=== PATIENT | male | born 2000 | race African-American/Black ===

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

== ENCOUNTER 2019-01-31 01:09 | Emergency (ER) | payer MEDICAID ==
[~2019-01-31] VITALS: Ht 157.5 cm; Wt 66.7 kg
[~2019-01-31 01:09] MED LIST changes: +CIPRO500 MG PO; +FLAGYL500 MG PO; +ZOFRAN8 MG PO
[2019-01-31 01:19] VITALS: Ht 157.5 cm; Wt 66.7 kg
[2019-01-31 01:36] LABS: HEMATOCRIT 41.5 % (42.0-54.0); HEMOGLOBIN 14.2 g/dL (13.5-17.5); MCH 27.6 pg (26.0-34.0); MCHC 34.2 g/dL (31.0-37.0); MCV 80.6 fL (80.0-100.0); PLATELET COUNT 74 10x3/uL (130-400); RBC 5.15 10x6/uL (4.20-6.10); RDW 13.3 % (11.5-14.5); WBC 9.6 10x3/uL (4.8-10.8)
[2019-01-31 01:49] LABS: ALBUMIN 3.9 g/dL (3.4-5.0); ALKALINE PHOSPHATASE 101 U/L (46-116); ALT (SGPT) 30 U/L (10-68); BILIRUBIN - TOTAL 0.22 mg/dL (0.2-1.3); CALC OSMOLALITY 280 mosm/kg (275-300); CALCIUM 8.7 mg/dL (8.5-10.1); CARBON DIOXIDE 25.4 mmol/L (21.0-32.0); CHLORIDE - SERUM 106 mmol/L (98-107); CREATININE - SERUM 0.7 mg/dL (0.6-1.3); GLUCOSE 105 mg/dL (74-106); POTASSIUM - SERUM 3.6 mmol/L (3.5-5.1); PROTEIN - SERUM 6.9 g/dL (6.4-8.2); SODIUM 142 mmol/L (136-145); UREA NITROGEN 7 mg/dL (7-18); eGFR NON AFRICAN AMERICAN > 90 mL/min (90-120)
[2019-01-31 01:50] LABS: APPEARANCE CLEAR (CLEAR); BILIRUBIN NEGATIVE (NEGATIVE); COLOR YELLOW (YELLOW); GLUCOSE NEGATIVE (NEGATIVE); KETONE NEGATIVE (NEGATIVE); NITRITE NEGATIVE (NEGATIVE); PROTEIN NEGATIVE (NEGATIVE); SPECIFIC GRAVITY 1.005 (1.005-1.020); UROBILINOGEN NORMAL (NORMAL)
[2019-01-31 01:52] LABS: AMYLASE - SERUM 56 U/L (25-115); LIPASE 95 U/L (73-393); TROPONIN-I < 0.017 ng/mL (0.000-0.060)
[2019-01-31 02:03] LABS: EOSINOPHILS 4 % (0-7); LYMPHOCYTES 47 % (15-50); MONOCYTES 15 % (2-11); NEUTROPHILS 34 % (40-80); PLATELET ESTIMATE DECREASED; PLATELET MORPHOLOGY GIANT PLTS PRESENT
[2019-01-31] MEDS ORDERED: ZOFRAN ODT4 MG/UDTAB PO (03:24)
[2019-01-31 03:40] VITALS: BP 90/50
== END 2019-01-31 03:40 | disposition home or self-care (01) ==
LOC: D.ER 01:09
PROVIDERS: Family Medicine
DX: R11.2 Nausea with vomiting, unspecified (principal); F17.200 Nicotine dependence, unspecified, uncomplicated

== ENCOUNTER 2019-02-19 20:32 | Emergency (ER) | payer MEDICAID ==
[~2019-02-19] VITALS: Ht 157.5 cm; Wt 66.8 kg
[~2019-02-19 20:32] MED LIST changes: +ZOFRAN ODT4 MG/UDTAB PO
[2019-02-19 20:36] VITALS: Ht 157.5 cm; Wt 66.8 kg
[2019-02-19] MEDS ORDERED: IBUPROFEN800 MG PO (21:15)
[2019-02-19] MEDS ORDERED: KEFLEX500 MG PO (21:15)
[2019-02-19 21:20] VITALS: BP 122/60
== END 2019-02-19 21:22 | disposition home or self-care (01) ==
LOC: D.ER 20:32
DX: S41.042A Puncture wound with foreign body of left shoulder, initial encounter (principal); X58.XXXA Exposure to other specified factors, initial encounter; Y93.89 Activity, other specified; Y92.89 Other specified places as the place of occurrence of the external cause

== ENCOUNTER 2019-03-29 16:32 | Emergency (ER) | payer MEDICAID ==
[~2019-03-29] VITALS: Ht 157.5 cm; Wt 79.5 kg
[~2019-03-29 16:32] MED LIST changes: +KEFLEX500 MG PO
[2019-03-29 16:58] VITALS: Ht 157.5 cm; Wt 79.5 kg
[2019-03-29] MEDS ORDERED: ACETAMINOPHEN500 M1 PO (18:18)
[2019-03-29] MEDS ORDERED: ORAL ANALGESIC9 GM TOPICAL (18:18)
[2019-03-29] MEDS ORDERED: IBUPROFEN800 MG PO (18:18)
[2019-03-29] MEDS ORDERED: PENICILLIN V P500 MG PO (18:19)
[2019-03-29 18:45] VITALS: BP 122/64
== END 2019-03-29 18:46 | disposition home or self-care (01) ==
LOC: D.ER 16:32
DX: K00.7 Teething syndrome (principal)

== ENCOUNTER 2019-04-05 17:58 | Emergency (ER) | payer MEDICAID ==
[~2019-04-05] VITALS: Ht 157.5 cm; Wt 79.5 kg
[~2019-04-05 17:58] MED LIST changes: +ORAL ANALGESIC9 GM TOPICAL; +PENICILLIN V P500 MG PO
[2019-04-05 18:22] LABS: APPEARANCE CLEAR (CLEAR); BILIRUBIN NEGATIVE (NEGATIVE); COLOR YELLOW (YELLOW); GLUCOSE NEGATIVE (NEGATIVE); KETONE NEGATIVE (NEGATIVE); NITRITE NEGATIVE (NEGATIVE); PROTEIN TRACE mg/dL (NEGATIVE); SPECIFIC GRAVITY 1.015 (1.005-1.020); UROBILINOGEN NORMAL (NORMAL)
[2019-04-05 18:35] LABS: UDS - AMPHET NEGATIVE QUAL (NEGATIVE); UDS - BARB NEGATIVE QUAL (NEGATIVE); UDS - BENZO NEGATIVE QUAL (NEGATIVE); UDS - COCAINE NEGATIVE QUAL (NEGATIVE); UDS - OPIATE NEGATIVE QUAL (NEGATIVE); UDS - PCP NEGATIVE QUAL (NEGATIVE); UDS - THC POSITIVE QUAL (NEGATIVE)
[2019-04-05 18:49] VITALS: BP 126/80
[2019-04-06] MEDS ORDERED: AMOXICILLIN500 M1 PO (12:20)
== END 2019-04-05 18:51 | disposition home or self-care (01) ==
LOC: D.ER 17:58
PROVIDERS: Family Medicine
DX: K12.2 Cellulitis and abscess of mouth (principal)

== ENCOUNTER 2019-04-05 19:37 | Observation (INO) | payer MEDICAID ==
[~2019-04-05] VITALS: Ht 167.6 cm; Wt 69.8 kg
[2019-04-05 20:06] LABS: BASOPHILS 0.2 % (0-2); EOSINOPHILS 0.5 % (0-7); HEMATOCRIT 43.9 % (42.0-54.0); HEMOGLOBIN 14.4 g/dL (13.5-17.5); IMMATURE GRANULOCYTES 0.2 % (0-5); LYMPHOCYTES 17.8 % (15-50); MCHC 32.8 g/dL (31.0-37.0); MCV 82.2 fL (80.0-100.0); MONOCYTES 9.7 % (2-11); NEUTROPHILS 71.6 % (40-80); PLATELET COUNT 118 10x3/uL (130-400); RBC 5.34 10x6/uL (4.20-6.10); RDW 13.5 % (11.5-14.5); WBC 14.9 10x3/uL (4.8-10.8)
[2019-04-05 20:18] LABS: ALBUMIN 4.3 g/dL (3.4-5.0); ALKALINE PHOSPHATASE 107 U/L (46-116); ALT (SGPT) 48 U/L (10-68); BILIRUBIN - TOTAL 0.17 mg/dL (0.2-1.3); CALC OSMOLALITY 285 mosm/kg (275-300); CALCIUM 8.6 mg/dL (8.5-10.1); CARBON DIOXIDE 27.4 mmol/L (21.0-32.0); CHLORIDE - SERUM 106 mmol/L (98-107); CREATININE - SERUM 1.1 mg/dL (0.6-1.3); GLUCOSE 113 mg/dL (74-106); POTASSIUM - SERUM 3.8 mmol/L (3.5-5.1); PROTEIN - SERUM 7.8 g/dL (6.4-8.2); SODIUM 143 mmol/L (136-145); UREA NITROGEN 12 mg/dL (7-18); eGFR NON AFRICAN AMERICAN > 90 mL/min (90-120)
[2019-04-05 20:45] VITALS: BP 111/62
--- NOTE | 2019-04-05 20:45 | NUR ---
PT SITTING UP IN BED STATES THAT HE FEELS SOMEWHAT BETTER AND ISNT SPITTING UP MUCH. PT C/O THROAT PAIN AND UVULA IS HANGING DOWN AND GAGGING HIM. PT STILL DENIES SOB. UVULA IS STILL NOTABLY SWOLLEN. INFORMED.
--- NOTE | 2019-04-05 21:45 | NUR ---
ROCEPHIN COMPLETE AT THIS TIME.
[2019-04-05 22:30] VITALS: BP 118/57
--- NOTE | 2019-04-05 22:30 | NUR ---
PT ADMITTED TO ICU ROOM 2312 FROM ER WITH ER NURS VIA W/C PT ALERT AND ORIENTED. RESP EVEN AND NONLABORED PLACED ON CM READING SR PT HAS SWOLLEN UVULA APPEARS TO BE SIZE OF GRAPE BACK OF THROAT ON RIGHT SIDE. ON ROOM AIR SAT 100% INFORMED OF S/S TO REPORT. WITH THIS ADMIT RATIO NOW 3:1
[2019-04-05 22:45] VITALS: BP 118/58
[2019-04-05 23:00] VITALS: BP 112/52
[2019-04-05 23:01] VITALS: BP 122/62; BMI 24.6
--- NOTE | 2019-04-05 23:36 | NUR ---
COMPOUND WORKER ON UNIT INFORMED PT HAD REVEALED DURING ADMISSION HISTORY THAT HE HAD BEEN TO HOSP [facility] TODAY FOR THREAT OF SUICIDE. PT DOES DENY ANY THOUGHTS AT THIS TIME OF HARMING SELF OR OTHERS. JUST WANTS TO GO HOME.
[2019-04-06] VITALS (14 sets, daily range): BP systolic 97–127; BP diastolic 40–96; Ht 167.6 cm; Wt 69.8 kg
--- NOTE | 2019-04-06 01:00 | NUR ---
RESTING QUIETLY NO DISTRESS NOTED VSS CPOC
--- NOTE | 2019-04-06 03:00 | NUR ---
REASSESSMENT MADE UNABLE TO SEE THE SWOLLEN AREA AT THIS TIME. PT DOES STATE IT FEELS BETTER. PREVIOUSLY WAS ABLE TO SEE JUST WITH PT OPENING MOUTH
--- NOTE | 2019-04-06 07:00 | NUR ---
RECEIVED BEDSIDE REPORT AND ASSUMED CARE OF PATIENT. PATIENT ALERT AND ORIENTED, ABLE TO TALK IN FULL SENTENCES, SPO2 - 100%, CM - 74, NSR, BBS CLEAR AND EQUAL. PATIENT WITH SLIGHTLY SWOLLEN UVULA, AND RIGHT TONSIL SWOLLEN. STATES FEELING BETTER, BUT HURTS TO SWALLOW RATES 5/10. HEAD TO TOE ASSESSMENT COMPLETE. IV 18 GA TO RIGHT AC, FLUSHES EASILY WITH GOOD BLOOD RETURN NOTED.
--- NOTE | 2019-04-06 08:13 | NUR ---
PATIENT ATE 90% OF CLEAR LIQUID DIET NO DIFFICULTIES SWALLOWING. REQUESTED PHONE, PHONE PLACED IN ROOM AND PROVIDED MOM'S PHONE NUMBER.
[2019-04-06 08:57] LABS: BASOPHILS 0.1 % (0-2); EOSINOPHILS 0 % (0-7); HEMATOCRIT 49.2 % (42.0-54.0); HEMOGLOBIN 16.1 g/dL (13.5-17.5); IMMATURE GRANULOCYTES 0.3 % (0-5); MCH 27.2 pg (26.0-34.0); MCHC 32.7 g/dL (31.0-37.0); MONOCYTES 3.5 % (2-11); NEUTROPHILS 81.1 % (40-80); PLATELET COUNT 128 10x3/uL (130-400); RBC 5.93 10x6/uL (4.20-6.10); RDW 13.8 % (11.5-14.5); WBC 15.5 10x3/uL (4.8-10.8)
[2019-04-06 09:19] LABS: CALC OSMOLALITY 286 mosm/kg (275-300); CALCIUM 9.4 mg/dL (8.5-10.1); CARBON DIOXIDE 26.7 mmol/L (21.0-32.0); CHLORIDE - SERUM 106 mmol/L (98-107); CREATININE - SERUM 0.9 mg/dL (0.6-1.3); GLUCOSE 145 mg/dL (74-106); SODIUM 142 mmol/L (136-145); UREA NITROGEN 15 mg/dL (7-18); eGFR NON AFRICAN AMERICAN > 90 mL/min (90-120)
[2019-04-06 09:22] LABS: POTASSIUM - SERUM 5.6 mmol/L (3.5-5.1)
--- NOTE | 2019-04-06 09:42 | NUR ---
PATIENT STATES NOT FEELING WELL, STATES FEELS NERVOUS/ANXIOUS, AND FELT THIS WAY YESTERDAY BEFORE THE AMBULANCE CAME. VSS. DENIES ANY PAIN, NO SOB, BBS - CLEAR AND EQUAL. WILL CONTINUE TO MONITOR.
--- NOTE | 2019-04-06 10:08 | NUR ---
PATIENT STATES FEELING BETTER, HAS HAD EPISODES LIKE THIS IN THE PAST AND HAD TAKEN MEDICINE FOR THEM BUT DOESNT RECALL THE NAME OR WHAT THE CAUSE FOR FEELING THIS WAY WAS. VSS. WILL CONTINUE TO MONITOR.
--- NOTE | 2019-04-06 10:21 | NUR ---
PATIENT UP AND WALKED IN UNIT VSS.
--- NOTE | 2019-04-06 10:53 | NUR ---
DR. TIRADO AT ROOM, UPDATED EXAMINES PATIENT AND ANSWERS QUESTIONS. TO DISCHARGE HOME ON ANTIBIOTICS.
--- NOTE | 2019-04-06 11:05 | NUR ---
REASSESSMENT COMPLETE. VSS. PATIENT STATES FEELING BETTER. STATES READY TO GO HOME BUT UNABLE TO CONTACT HIS MOTHER, PHONE IS NOT ACCEPTING CALLS AT THIS TIME PER [facility] MESSAGE.
--- NOTE | 2019-04-06 11:24 | NUR ---
PATIENT GIVEN VANILLA PUDDING PER REQUEST. STATES NOT ABLE TO GET HOLD OF HIS MOTHER.
--- NOTE | 2019-04-06 11:57 | NUR ---
PATIENT GIVEN LUNCH TRAY. VSS. NO NEEDS AT THIS TIME.
[2019-04-06] MEDS ORDERED: AMOXICILLIN500 M1 PO (12:20)
--- NOTE | 2019-04-06 12:46 | NUR ---
PATIENT DISCHARGE INSTRUCTIONS GIVEN AND VERBALIZES UNDERSTANDING. TEACHING PROVIDED ON TAKING ANTIBIOTICS DIRECTED UNTIL COMPLETED AND ON UVALITIS. IV 18 GA TO RIGHT AC DISCONTINUED. VSS. PATIENT AMBULATORY.
== END 2019-04-06 13:00 | disposition home or self-care (01) ==
LOC: D.ER 19:37 → D.ICU 21:17 → OBSVTIME 21:17 → D.ICU 04-06 13:00
PROVIDERS: Family Medicine; ADMIT Internal Medicine Nephrology; ATTEND Internal Medicine Nephrology
DX: K12.2 Cellulitis and abscess of mouth (principal); J02.0 Streptococcal pharyngitis; J45.909 Unspecified asthma, uncomplicated; F17.203 Nicotine dependence unspecified, with withdrawal